=== PATIENT | female | born 1990 | race Caucasian/White ===

== ENCOUNTER 2018-01-29 00:32 | Emergency (ER) | payer OTHER, MEDICAID ==
[2018-01-29 00:51] VITALS: BP 115/65
[2018-01-29 01:24] LABS: APPEARANCE,URINE SLIGHTLY-CLOUDY; BILIRUBIN,URINE NEGATIVE (NEGATIVE); COLOR,URINE YELLOW; GLUCOSE, URINE NEGATIVE (NEGATIVE); KETONES,URINE NEGATIVE (NEGATIVE); LEUKOCYTE ESTERASE,URINE NEGATIVE (NEGATIVE); NITRITE,URINE NEGATIVE (NEGATIVE); PROTEIN,URINE NEGATIVE (NEGATIVE); URINE SPECIFIC GRAVITY 1.013; UROBILINOGEN,URINE NEGATIVE mg/dL (<2.0)
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
== END 2018-01-29 03:44 | disposition home or self-care (01) ==
LOC: ER 00:32
DX: Z04.1 Encounter for examination and observation following transport accident (principal); O26.92 Pregnancy related conditions, unspecified, second trimester; Z3A.26 26 weeks gestation of pregnancy; V89.2XXA Person injured in unspecified motor-vehicle accident, traffic, initial encounter; Z88.3 Allergy status to other anti-infective agents
CPT/HCPCS: 76815; 81001; 81025; 99285

== ENCOUNTER 2018-01-29 03:46 | Outpatient (CLI) | payer MEDICAID ==
--- NOTE | 2018-01-29 04:51 | RADIOLOGY REPORT (SQ) ---
EXAM DESCRIPTION: U/S OB LIMITED CLINICAL HISTORY: 27 years Female, eval for abruption, placenta location, EGA COMPARISON: None. TECHNIQUE: Limited second trimester obstetrical ultrasound FINDINGS: measurements: BPD: 6.72 compatible with an estimated gestational age of 27 weeks, 0 days. HC: 24.81 cm compatible with an estimated gestational age of 27 weeks, 0 days. AC: 23.14 cm compatible with an estimated gestational age of 27 weeks, 3 days. FL: 4.93 compatible with an estimated gestational age of 26 weeks, 4 days. Estimated weight: 1028 g. Percentile 61% Estimated age of 27 weeks, 0 days. Estimated date of delivery by ultrasound 04/30/2018. LMP: 07/30/2017 heart rate 160 beats for minute. Placenta: Anterior no evidence of abruption. Presentation: Breech Amniotic fluid volume not obtained however qualitatively normal appearing amniotic fluid volume. IMPRESSION: 1. Single live intrauterine with estimated gestational age of 27 weeks, 0 days. heart rate of 160 beats for minute. 2. The placenta is anterior with no definite evidence of abruption at this time.
== END 2018-01-29 05:50 | disposition home or self-care (01) ==
LOC: LC 03:46
PROVIDERS: ATTEND Obstetrics & Gynecology
PROC: 4A1HXCZ Monitoring of Products of Conception, Cardiac Rate, External Approach (ICD-10-PCS; principal; 2018-01-29)
DX: O47.02 False labor before 37 completed weeks of gestation, second trimester (principal); Z3A.26 26 weeks gestation of pregnancy
CPT/HCPCS: 76815

== ENCOUNTER 2018-03-29 01:43 | Outpatient (CLI) | payer MEDICAID ==
[2018-03-29 02:27] LABS: APPEARANCE,URINE SLIGHTLY-CLOUDY; BILIRUBIN,URINE NEGATIVE (NEGATIVE); COLOR,URINE YELLOW; GLUCOSE, URINE NEGATIVE (NEGATIVE); KETONES,URINE NEGATIVE (NEGATIVE); LEUKOCYTE ESTERASE,URINE NEGATIVE (NEGATIVE); NITRITE,URINE NEGATIVE (NEGATIVE); PROTEIN,URINE NEGATIVE (NEGATIVE); UROBILINOGEN,URINE NEGATIVE mg/dL (<2.0)
[2018-03-29] MEDS ORDERED: RINGERS SOLUTION,LACTATED 1,000 ML IV PRN (02:37)
[2018-03-29 03:05] LABS: URINE AMPHETAMINES SCREEN NEGATIVE; URINE BARBITURATES SCREEN NEGATIVE; URINE BENZODIAZEPINES SCREEN NEGATIVE; URINE COCAINE SCREEN NEGATIVE; URINE MARIJUANA (THC) SCREEN NEGATIVE; URINE METHADONE SCREEN NEGATIVE; URINE PHENCYCLIDINE SCREEN NEGATIVE
--- NOTE | 2018-03-29 03:44 | RADIOLOGY REPORT (SQ) ---
EXAM DESCRIPTION: US LIMITED COMPLETED DATE/TME: 03/29/2018 00:00 CLINICAL HISTORY: 27 years, Female, placental status COMPARISON: 01/29/2018 TECHNIQUE: Limited third trimester surgical ultrasound. FINDINGS: heart rate 157 beats. Presentation: Vertex CROW: 21 cm. Placenta: Anterior. No definite evidence of placental hemorrhage on these images. IMPRESSION: 1. No definite evidence of placental hemorrhage on these images. 2. Polyhydramnios. Continued obstetrical follow-up recommended. 2010 [employer]- All Rights Reserved
--- NOTE | 2018-03-29 05:30 | Non Stress Test Report ---
Non Stress Test Datetime Report Generated by CPN: 03/29/2018 05:30 DEMOGRAPHIC EGA NST: 34.4 INDICATION Indication for Study: Ordered by Provider MONITORING Monitor Explained: Monitor Explained; Test Explained; Patient Verbalized Understanding Time on Monitor: 03/29/2018 02:53 Time off Monitor: 03/29/2018 04:21 NST Duration: 88 NST INTERVENTIONS NST Interventions: PO Hydration; IV Fluids; Reposition Patient Physician Notified NST: Dr. Fagan BABY A: [id number] BABY A Movement : Present Contraction Frequency : 2-7 FHR Baseline : 150 Accelerations : 15X15 Decelerations : None Variability : Moderate 6-25bpm NST Review: Meets Criteria for Reactive NST NST Review and Verified By : abelino SEXTON Results: Reactive NST REPORT Report Trigger: Send Report
== END 2018-03-29 05:11 | disposition home or self-care (01) ==
LOC: LC 01:43
PROVIDERS: ATTEND Obstetrics & Gynecology Gynecology
PROC: 4A1HXCZ Monitoring of Products of Conception, Cardiac Rate, External Approach (ICD-10-PCS; principal; 2018-03-29)
DX: O40.3XX0 Polyhydramnios, third trimester, not applicable or unspecified (principal); Z3A.34 34 weeks gestation of pregnancy
CPT/HCPCS: 59025; 76815; 80307; 81001

== ENCOUNTER 2018-03-29 05:21 | Emergency (ER) | payer MEDICAID ==
[2018-03-29 05:54] LABS: ABSOLUTE EOSINOPHILS # (AUTO) 0.2 10^3/uL (0.0-0.6); ABSOLUTE LYMPHOCYTES (AUTO) 2.8 10^3/uL (0.5-4.7); ABSOLUTE MONOCYTES (AUTO) 0.6 10^3/uL (0.1-1.4); ABSOLUTE NEUT (AUTO) 7.7 10^3/uL (1.7-8.2); BASOPHILS % (AUTO) 0.3 % (0-2); EOSINOPHILS % (AUTO) 1.4 % (0-6); HEMATOCRIT 32.8 % (36.0-47.0); HEMOGLOBIN 10.9 g/dL (12.0-15.5); LYMPHOCYTES % (AUTO) 25.1 % (13-45); MEAN CORPUSCULAR HGB CONC 33.3 g/dL (32.0-36.0); MEAN CORPUSCULAR VOLUME 78 fl (80-97); MONOCYTES % (AUTO) 5.1 % (3-13); PLATELET COUNT 317 10^3/uL (150-450); RED BLOOD COUNT 4.21 10^6/uL (3.72-5.28); RED CELL DISTRIBUTION WIDTH 16.5 % (11.5-14.0); SEGMENTED NEUTROPHILS % (AUTO) 68.1 % (42-78); TOTAL CELLS COUNTED % (AUTO) 100 %; WHITE BLOOD COUNT 11.3 10^3/uL (4.0-10.5)
--- NOTE | 2018-03-29 05:57 | ER Document Report ---
ED Medical Screen (RME) - General Chief Complaint: Abdominal Pain Stated Complaint: ABDOMINAL PAIN Time Seen by Provider: 03/29/18 05:37 Mode of Arrival: Ambulatory Information source: Patient Notes: 27-year-old female presents with right upper and lower quadrant pain. Patient is 34 weeks and was just cleared by labor and delivery. Patient reports that this pain has been ongoing for the last 2-3 days. Patient reports nausea but denies vomiting or diarrhea patient denies fever. Patient reports pain is 3/5 and is intermittent. Patient denies any history of abdominal surgeries. Patient reports normal bowel movements last bowel movement yesterday. I have greeted and performed a rapid initial assessment of this patient. A comprehensive ED assessment and evaluation of the patient, analysis of test results and completion of the medical decision making process will be conducted by additional ED providers. TRAVEL OUTSIDE OF THE [place] IN LAST 30 DAYS: No - Related Data Allergies/Adverse Reactions: erythromycin base Allergy (Verified 03/29/18 05:24) fluticasone Allergy (Verified 03/29/18 05:24) mometasone furoate Allergy (Verified 03/29/18 05:24) pollen extracts Allergy (Verified 03/29/18 05:24) ragweed pollen Allergy (Verified 03/29/18 05:24) Past Medical History - General Information source: Patient - Social History Cigarette use (# per day): No Frequency of alcohol use: None Drug Abuse: None Lives with: Family Pulmonary Medical History: Reports: Hx Asthma Renal/ Medical History: Denies: Hx Peritoneal Dialysis Past Surgical History: Reports: Hx Orthopedic Surgery - R ACL reconstruction Review of Systems - Review of Systems Constitutional: No symptoms reported EENT: No symptoms reported Cardiovascular: No symptoms reported Respiratory: No symptoms reported Gastrointestinal: See HPI Genitourinary: No symptoms reported Female Genitourinary: No symptoms reported Musculoskeletal: No symptoms reported Skin: No symptoms reported Hematologic/Lymphatic: No symptoms reported Neurological/Psychological: No symptoms reported Physical Exam - Vital signs Vitals: Temp Pulse Resp BP Pulse Ox 98 F 91 16 138/79 H 97 03/29/18 05:27 03/29/18 05:27 03/29/18 05:27 03/29/18 05:27 03/29/18 05:27 - Notes Notes: PHYSICAL EXAMINATION: GENERAL: Well-appearing, well-nourished and in no acute distress. ABDOMEN: Soft, large round gravid abdomen. TTP to RLQ/RUQ. No guarding, no rebound. No masses appreciated. Female : deferred Course - Vital Signs Vital signs: Temp Pulse Resp BP Pulse Ox 98 F 91 16 138/79 H 97 03/29/18 05:27 03/29/18 05:27 03/29/18 05:27 03/29/18 05:27 03/29/18 05:27 - Laboratory Result Diagrams: 03/29/18 05:40 03/29/18 05:40 Doctor's Discharge - Discharge Referrals: KENDALL ROJAS MD [Primary Care Provider] - Follow up as needed
[2018-03-29 06:20] LABS: ALANINE AMINOTRANSFERASE 23 U/L (9-52); ALBUMIN 3.1 g/dL (3.5-5.0); ALKALINE PHOSPHATASE 103 U/L (38-126); ANION GAP 10 (5-19); ASPARTATE AMINO TRANSFERASE 14 U/L (14-36); BILIRUBIN,DIRECT 0.3 mg/dL (0.0-0.4); BILIRUBIN,TOTAL 0.4 mg/dL (0.2-1.3); BLOOD UREA NITROGEN 5 mg/dL (7-20); CARBON DIOXIDE 23 mmol/L (22-30); CHLORIDE 106 mmol/L (98-107); GLUCOSE 80 mg/dL (75-110); LIPASE 136.2 U/L (23-300); POTASSIUM 4.3 mmol/L (3.6-5.0); SODIUM 139.1 mmol/L (137-145); TOTAL PROTEIN 6.2 g/dL (6.3-8.2)
--- NOTE | 2018-03-29 06:40 | RADIOLOGY REPORT (SQ) ---
EXAM DESCRIPTION: US ABDOMEN LIMITED COMPLETED DATE/TME: 03/29/2018 05:41 CLINICAL HISTORY: RUQ pain COMPARISON: None. TECHNIQUE: Real-time sonographic images of the right upper abdomen were obtained using a curved multihertz transducer. FINDINGS: Pancreas: Negative is not well-visualized due to overlying structures. Vascular: The visualized portions of the aorta and IVC are unremarkable. Liver: The liver has normal contour and echogenicity. Hepatopedal flow in the portal vein confirmed with color and spectral Doppler imaging. The common bile duct measures 0.3 cm. Gallbladder: Mobile echogenic structures compatible with gallstones. No wall thickening or pericholecystic fluid. Negative reported sonographic Mills sign. Right Kidney: The right kidney measures 10.2 cm in length. No hydronephrosis, solid renal mass, or shadowing calculi. IMPRESSION: 1. Cholelithiasis without other sonographic evidence of acute cholecystitis.
--- NOTE | 2018-03-29 07:20 | ER Document Report ---
ED General <RAMIN EMERSON - Last Filed: 03/29/18 07:20> - General Mode of Arrival: Ambulatory Information source: Patient TRAVEL OUTSIDE OF THE [place] IN LAST 30 DAYS: No - HPI Onset/Duration: Constant <VIVEK PABLO - Last Filed: 03/29/18 07:35> - General Chief Complaint: Abdominal Pain Stated Complaint: ABDOMINAL PAIN Time Seen by Provider: 03/29/18 05:37 Notes: Patient is a 27 year old female currently 34 weeks (cleared by labor and delivery) with asthma presents to the emergency department complaining of right mid to lower abdominal pain onset 2-3 days ago with an associated symptom of nausea. Patient states the pain is constant and exacerbated when she is standing up. Patient denies any vomiting or diarrhea. (VIVEK PABLO) - Related Data Allergies/Adverse Reactions: erythromycin base Allergy (Verified 03/29/18 05:24) fluticasone Allergy (Verified 03/29/18 05:24) mometasone furoate Allergy (Verified 03/29/18 05:24) pollen extracts Allergy (Verified 03/29/18 05:24) ragweed pollen Allergy (Verified 03/29/18 05:24) Past Medical History - General Information source: Patient - Social History Smoking Status: Former Smoker - quit 2011 Cigarette use (# per day): No Chew tobacco use (# tins/day): No Frequency of alcohol use: None Drug Abuse: None Lives with: Family Family History: Reviewed & Not Pertinent Patient has suicidal ideation: No Patient has homicidal ideation: No Pulmonary Medical History: Reports: Hx Asthma Past Surgical History: Reports: Hx Orthopedic Surgery - R ACL reconstruction <VIVEK PABLO - Last Filed: 03/29/18 07:35> Review of Systems - Review of Systems Constitutional: No symptoms reported EENT: No symptoms reported Cardiovascular: No symptoms reported Respiratory: No symptoms reported Gastrointestinal: See HPI, Abdominal pain, Nausea Genitourinary: No symptoms reported Female Genitourinary: No symptoms reported Musculoskeletal: No symptoms reported Skin: No symptoms reported Hematologic/Lymphatic: No symptoms reported Neurological/Psychological: No symptoms reported -: Yes All other systems reviewed and negative <VIVEK PABLO - Last Filed: 03/29/18 07:35> Physical Exam - General General appearance: Appears well, Alert In distress: None - HEENT Head: Normocephalic, Atraumatic Eyes: Normal Conjunctiva: Normal Extraocular movements intact: Yes Neck: Normal - Respiratory Respiratory status: No respiratory distress Chest status: Nontender Breath sounds: Normal Chest palpation: Normal - Cardiovascular Rhythm: Regular Heart sounds: Normal auscultation Murmur: No Friction rub: No Gallop: None auscultated - Abdominal Inspection: Gravid female, Morbidly Obese Distension: No distension Bowel sounds: Normal Tenderness: Tender - Tender to palpation to the right mid to lower abdomen consistent with abdominal round ligament insertion. Organomegaly: No organomegaly - Back Back: Normal - Extremities General upper extremity: Normal ROM General lower extremity: Normal ROM - Neurological Neuro grossly intact: Yes Cognition: Normal Orientation: AAOx4 Lamoni Coma Scale Eye Opening: Spontaneous Lamoni Coma Scale Verbal: Oriented Lamoni Coma Scale Motor: Obeys Commands Lamoni Coma Scale Total: 15 Speech: Normal - Psychological Associated symptoms: Normal affect, Normal mood - Skin Skin Temperature: Warm Skin Moisture: Dry Skin Color: Normal <VIVEK PABLO - Last Filed: 03/29/18 07:35> - Vital signs Vitals: Temp Pulse Resp BP Pulse Ox 98 F 91 16 138/79 H 97 03/29/18 05:27 03/29/18 05:27 03/29/18 05:27 03/29/18 05:27 03/29/18 05:27 Course - Laboratory Result Diagrams: 03/29/18 05:40 03/29/18 05:40 <RAMIN EMERSON - Last Filed: 03/29/18 07:20> - Laboratory Result Diagrams: 03/29/18 05:40 03/29/18 05:40 <VIVEK PABLO - Last Filed: 03/29/18 07:35> - Vital Signs Vital signs: Temp Pulse Resp BP Pulse Ox 98 F 91 16 138/79 H 97 03/29/18 05:27 03/29/18 05:27 03/29/18 05:27 03/29/18 05:27 03/29/18 05:27 - Laboratory Laboratory results interpreted by me: 03/29/18 03/29/18 05:40 05:40 WBC 11.3 H Hgb 10.9 L Hct 32.8 L MCV 78 L MCH 26.0 L RDW 16.5 H BUN 5 L Total Protein 6.2 L Albumin 3.1 L Discharge <RAMIN EMERSON - Last Filed: 03/29/18 07:20> <VIVEK PABLO - Last Filed: 03/29/18 07:35> - Discharge Clinical Impression: Pain of round ligament affecting , antepartum Cholelithiasis Qualifiers: Cholelithiasis location: gallbladder Cholecystitis presence: without cholecystitis Biliary obstruction: without biliary obstruction Qualified Code(s) : K80.20 - Calculus of gallbladder without cholecystitis without obstruction Condition: Stable Disposition: HOME, SELF-CARE Additional Instructions: Pelvic Pain and Round Ligament Pain: Lower abdominal pain during can have many causes. We look for serious causes such as appendicitis, tubal , miscarriage, placental separation, or urinary tract infection. Less serious causes of pain include corpus luteum cyst (ovarian cyst of ) or stretching of the pelvic tissues by the enlarging uterus. Sometimes the pain comes from the bowels. If no specific cause for the pain is found, we attribute the pain to stretching of the uterine ligaments. This is called "round ligament strain." It is not dangerous. Just rest until the pain goes away. Call us or come back for reexamination if any problems occur, such as: (1) Pain that becomes more severe, steady, or becomes concentrated in one specific area. Also, pain that is more severe with movement or coughing. (2) Vomiting that persists or becomes more frequent. (3) Blood in the vomitus, urine, or bowel movements. Blood in the stool may have a tarry or black appearance. (4) Shaking chills or fever greater than 100 degrees. (5) The abdomen becomes more distended or swollen. (6) Bowel movements cease. (7) Vaginal bleeding. Gallbladder Disease: Your evaluation shows evidence of gallbladder disease. The gallbladder is a pouch under the liver which stores bile. Stones, infection, or irritation of the gallbladder cause attacks of pain. Certain foods -- fats in particular -- may provoke attacks. The usual treatment for gallbladder disease is surgical removal of the gallbladder -- called a cholecystectomy. You will be referred to a physician qualified to advise you on the best treatment for your problem. Call the doctor or return at once if you develop severe pain, repeated vomiting, fever, or jaundice (a yellow color in the skin and whites of the eyes) . Stay on a low-fat diet. Follow-up with your [facility] doctor this week and let them know about the gallbladder ultrasound showing multiple small stones. Follow-up with [facility] to discuss having her gallbladder removed after you deliver. RETURN TO THE EMERGENCY ROOM IF ANY NEW OR WORSENING SYMPTOMS. Referrals: [facility] [Provider Group] - Follow up as needed KENDALL ROJAS MD [Primary Care Provider] - Follow up as needed Scribe Attestation: 03/29/18 07:24 I personally performed the services described in the documentation, reviewed and edited the documentation which was dictated to the scribe in my presence, and it accurately records my words and actions. (RAMIN EMERSON) Scribe Documentation - Scribe Written by Mary Jo:: Mary Jo Chavez, 03/29/2018 07:35 acting as scribe for :: Rosa M <VIVEK PABLO - Last Filed: 03/29/18 07:35>
[2018-03-29 07:42] VITALS: BP 124/74
== END 2018-03-29 07:42 | disposition home or self-care (01) ==
LOC: ER 05:21
DX: O26.893 Other specified pregnancy related conditions, third trimester (principal); R10.2 Pelvic and perineal pain; R11.0 Nausea; O99.613 Diseases of the digestive system complicating pregnancy, third trimester; K80.20 Calculus of gallbladder without cholecystitis without obstruction; O99.513 Diseases of the respiratory system complicating pregnancy, third trimester; J45.909 Unspecified asthma, uncomplicated; Z3A.34 34 weeks gestation of pregnancy; Z88.1 Allergy status to other antibiotic agents; Z91.048 Other nonmedicinal substance allergy status; Z87.891 Personal history of nicotine dependence
CPT/HCPCS: 36415; 76705; 80053; 83690; 85025; 99284

== ENCOUNTER 2018-04-13 14:57 | Outpatient (CLI) | payer MEDICAID ==
--- NOTE | 2018-04-13 16:21 | Non Stress Test Report ---
Non Stress Test Datetime Report Generated by CPN: 04/13/2018 16:21 DEMOGRAPHIC EGA NST: 36.5 INDICATION Indication for Study: Polyhydramnios VITAL SIGNS RESP - NST: 18 NBPSYS NST: 113 NBPDIA NST: 59 MONITORING Monitor Explained: Monitor Explained; Test Explained; Patient Verbalized Understanding Time on Monitor: 04/13/2018 15:22 Time off Monitor: 04/13/2018 16:07 NST Duration: 45 NST INTERVENTIONS NST Interventions: PO Hydration Physician Notified NST: Behzad viewed strip BABY A: [id number] BABY A Movement : Present Contraction Frequency : none FHR Baseline : 150 Accelerations : 15X15 Decelerations : None Variability : Moderate 6-25bpm NST Review: Meets Criteria for Reactive NST NST Review and Verified By : Jimbo Anderson RN NST Results: Reactive NST REPORT Report Trigger: Send Report
[2018-04-13 17:15] LABS: APPEARANCE,URINE CLOUDY; BILIRUBIN,URINE NEGATIVE (NEGATIVE); COLOR,URINE AMBER; GLUCOSE, URINE NEGATIVE (NEGATIVE); KETONES,URINE NEGATIVE (NEGATIVE); LEUKOCYTE ESTERASE,URINE SMALL (NEGATIVE); NITRITE,URINE NEGATIVE (NEGATIVE); PROTEIN,URINE 30 mg/dL (NEGATIVE); URINE SPECIFIC GRAVITY 1.016; UROBILINOGEN,URINE NEGATIVE mg/dL (<2.0)
[2018-04-13 17:55] LABS: URINE AMPHETAMINES SCREEN NEGATIVE; URINE BARBITURATES SCREEN NEGATIVE; URINE BENZODIAZEPINES SCREEN NEGATIVE; URINE COCAINE SCREEN NEGATIVE; URINE MARIJUANA (THC) SCREEN NEGATIVE; URINE METHADONE SCREEN NEGATIVE; URINE PHENCYCLIDINE SCREEN NEGATIVE
== END 2018-04-13 16:17 | disposition home or self-care (01) ==
LOC: LC 14:57
PROVIDERS: ATTEND Obstetrics & Gynecology
PROC: 4A1HXCZ Monitoring of Products of Conception, Cardiac Rate, External Approach (ICD-10-PCS; principal; 2018-04-13)
DX: O40.3XX0 Polyhydramnios, third trimester, not applicable or unspecified (principal); Z3A.36 36 weeks gestation of pregnancy
CPT/HCPCS: 59025; 80307; 81005

== ENCOUNTER 2018-04-14 18:59 | Inpatient (IN) | payer MEDICAID ==
[2018-04-14 19:47] LABS: ABSOLUTE EOSINOPHILS # (AUTO) 0.1 10^3/uL (0.0-0.6); ABSOLUTE LYMPHOCYTES (AUTO) 2.3 10^3/uL (0.5-4.7); ABSOLUTE MONOCYTES (AUTO) 0.5 10^3/uL (0.1-1.4); ABSOLUTE NEUT (AUTO) 6.1 10^3/uL (1.7-8.2); BASOPHILS % (AUTO) 0.4 % (0-2); EOSINOPHILS % (AUTO) 1.6 % (0-6); HEMATOCRIT 32.2 % (36.0-47.0); HEMOGLOBIN 10.9 g/dL (12.0-15.5); LYMPHOCYTES % (AUTO) 25.5 % (13-45); MEAN CORPUSCULAR HEMOGLOBIN 26.3 pg (27.0-33.4); MEAN CORPUSCULAR HGB CONC 33.9 g/dL (32.0-36.0); MEAN CORPUSCULAR VOLUME 78 fl (80-97); MONOCYTES % (AUTO) 5.6 % (3-13); PLATELET COUNT 290 10^3/uL (150-450); RED BLOOD COUNT 4.16 10^6/uL (3.72-5.28); RED CELL DISTRIBUTION WIDTH 17.2 % (11.5-14.0); SEGMENTED NEUTROPHILS % (AUTO) 66.9 % (42-78); TOTAL CELLS COUNTED % (AUTO) 100 %; WHITE BLOOD COUNT 9.1 10^3/uL (4.0-10.5)
[2018-04-14 19:56] LABS: APPEARANCE,URINE SLIGHTLY-CLOUDY; BILIRUBIN,URINE NEGATIVE (NEGATIVE); COLOR,URINE YELLOW; GLUCOSE, URINE NEGATIVE (NEGATIVE); KETONES,URINE NEGATIVE (NEGATIVE); LEUKOCYTE ESTERASE,URINE TRACE (NEGATIVE); NITRITE,URINE NEGATIVE (NEGATIVE); PROTEIN,URINE NEGATIVE (NEGATIVE); URINE SPECIFIC GRAVITY 1.013; UROBILINOGEN,URINE NEGATIVE mg/dL (<2.0)
[2018-04-14 20:13] LABS: URINE AMPHETAMINES SCREEN NEGATIVE; URINE BARBITURATES SCREEN NEGATIVE; URINE BENZODIAZEPINES SCREEN NEGATIVE; URINE COCAINE SCREEN NEGATIVE; URINE MARIJUANA (THC) SCREEN NEGATIVE; URINE METHADONE SCREEN NEGATIVE; URINE PHENCYCLIDINE SCREEN NEGATIVE
--- NOTE | 2018-04-14 20:55 | RADIOLOGY REPORT (SQ) ---
EXAM DESCRIPTION: U/S OB LIMITED COMPLETED DATE/TIME: 04/14/2018 8:42 pm REASON FOR STUDY: position patient being induced for labor COMPARISON: 03/29/2018 TECHNIQUE: Limited transabdominal grayscale ultrasound for evaluation of specific requested obstetri mahad parameters. LIMITATIONS: None. FINDINGS: CERVICAL LENGTH: Not measured. Closed. CROW: Polyhydramnios by history. FHR: Not recorded. Beats per minute. PRESENTATION: Breech OTHER: Gestation of 36 weeks 6 days. IMPRESSION: LIMITED OBSTETRICAL ULTRASOUND WITH MEASURED PARAMETERS DELINEATED ABOVE. Trimester of : Third trimester - 28 weeks to delivery. TECHNICAL DOCUMENTATION: JOB ID: [id number] [employer]- All Rights Reserved Reading location - IP/workstation name: [email or web address]
--- NOTE | 2018-04-14 22:55 | Non Stress Test Report ---
Non Stress Test Datetime Report Generated by CPN: 04/14/2018 22:55 DEMOGRAPHIC Test Number: 4 EGA NST: 36.6 INDICATION Indication for Study: Ordered by Provider URINE RESULTS Urine Protein, NST: Negative Urine Ketones - NST: Negative Urine Glucose - NST: Negative Urine Blood - NST: Negative MONITORING Monitor Explained: Monitor Explained; Test Explained; Patient Verbalized Understanding Time on Monitor: 04/14/2018 21:45 Time off Monitor: 04/14/2018 22:11 NST Duration: 26 NST INTERVENTIONS NST Interventions: PO Hydration Physician Notified NST: Romeo BABY A: [id number] BABY A Movement : Present Contraction Frequency : irritability FHR Baseline : 150 Accelerations : 15X15 Decelerations : None Variability : Moderate 6-25bpm NST Review: Meets Criteria for Reactive NST NST Review and Verified By : AFUA Blancas NST Results: Reactive NST REPORT Report Trigger: Send Report
--- NOTE | 2018-04-14 23:07 | Admission Physical ---
Datetime Report Generated by CPN: 04/14/2018 23:07 CURRENT ADMISSION Chief Complaint: Other Chief Complaint Other: polyhydramnios Indication for Induction: Polyhydramnios Admit Impression : Term, Intrauterine Admit Impression- Other: poly and breech Admit Plan: Observation/Evaluation Admit Plan- Other: unable to induce. consider version and c section in am. ALLERGIES Medication Allergies: Yes Medication Allergies: mometasone furoate (04/13/2018); erythromycin base (04/13/2018); pollen extracts (04/13/2018); fluticasone (04/13/2018); ragweed pollen (04/13/2018) Latex: No Latex Allergies OBSTETRICAL HISTORY EDC: 05/06/2018 00:00 : 2 Para: 1 Term: 1 : 0 SAB: 0 IAB: 0 Ectopic: 0 Livin Cesareans: 0 VBACs: 0 Multiple Births: 0 Gestational Diabetes: No Rh Sensitization: No Incompetent Cervix: No PETER: No Infertility: No ART Treatment: No Uterine Anomaly: No IUGR: No Hx Previous C/S: No Macrosomia: No Hx Loss/Stillborn: No PIH: No Hx : No Placenta Previa/Abruption: No Depression/PP Depression: Yes PTL/PROM: No Post Hemorrhage: No Current Procedures: Ultrasound; NST Obstetrical History Comments: 2011 at 42 weeks G2- current SEE RECORDS Alcohol: No Marijuana : No Cocaine: No Other Illicit Drugs: No Cigarettes: Former Smoker. [id number] Cigarette Frequency: 5 - 10 per day MEDICAL HISTORY Diabetes: No Blood Transfusion: No Pulmonary Disease (Asthma, TB): Yes Breast Disease: No Hypertension: No Oil Lease Operator Surgery: Yes Heart Disease: No Hosp/Surgery: Yes Autoimmune Disorder: No Anesthetic Complications: No Kidney Disease: No Abnormal Pap Smear: No Neuro/Epilepsy: No Psychiatric Disorders: Yes Other Medical Diseases: No Hepatitis/Liver Disease: No Significant Family History: Yes Varicosities/Phlebitis: No Trauma/Violence : No Thyroid Dysfunction: Yes Medical History Comments: ACL reconstruction in right knee INFECTIOUS HISTORY Gonorrhea: No Genital Herpes: No Chlamydia: No Tuberculosis: No Syphilis: No Hepatitis: No HIV/AIDS Exposure: No Rash or Viral Illness: No HPV: No PHYSICAL EXAM General: Normal HEENT: Normal Neurologic: Normal Thyroid: Normal Heart: Normal Lungs: Normal Breast: Deferred Back: Normal Abdomen: Normal Genitourinary Exam: Normal Extremities: Normal DTRs: Normal Pelvic Type: Adequate Vital Signs: Reviewed MEMBRANES Membranes: Intact FETUS A EGA: 36.6 Monitoring: External US FHR- Baseline: 20 Variability: Moderate 6-25bpm Decelerations: None FHR Category: Category I Presentation: Breech PLANS FOR LABOR AND DELIVERY Labor and Delivery: None Pain Management: Natural Feeding Preference: Breast Benefit of Breast Feed Discussed: Yes Circumcision: N/A INFORMED CONSENT Signature: with User ID: [email or web address]
[2018-04-14] MEDS ORDERED: ZOLPIDEM TARTRATE 5 MG TABLET PO SCH (23:45)
[2018-04-14] MEDS ORDERED: ZOLPIDEM TARTRATE 5 MG TABLET ONE (23:51)
[2018-04-15] MEDS ORDERED: DINOPROSTONE 10 MG VAGINAL INSERT.SR ONE (08:31)
[2018-04-15] MEDS ORDERED: CITRIC ACID/SODIUM CITRATE ORAL SOLN 15 ML UDCUP ONE (15:14)
[2018-04-15] MEDS ORDERED: CEFAZOLIN INJ 1 GM VIAL ONE (15:15)
[2018-04-15] MEDS ORDERED: OXYTOCIN 10 UNIT/ML VIAL ONE (15:19)
[2018-04-15] MEDS ORDERED: BUPIVACAINE HCL/DEX-WATER/PF 15 MG/2 ML AMPULE ONE (15:19)
[2018-04-15] MEDS ORDERED: FENTANYL CITRATE INJ/PF 100 MCG/2 ML AMPUL ONE (15:19)
[2018-04-15] MEDS ORDERED: MIDAZOLAM 2 MG/2 ML INJ ONE (15:19)
[2018-04-15] MEDS ORDERED: PHENYLEPHRINE HCL INJ/PF 10 MG/1 ML SDV ONE (15:20)
[2018-04-15] MEDS ORDERED: ACETAMINOPHEN 1,000 MG/100 ML RTUPB IV ONE (15:20)
[2018-04-15] MEDS ORDERED: IBUPROFEN 800 MG TABLET PO SCH (16:45)
[2018-04-15] MEDS ORDERED: SIMETHICONE 80 MG TAB.CHEW PO PRN (16:45)
[2018-04-15] MEDS ORDERED: MORPHINE SULFATE 10 MG/ML INJ IM PRN (16:45)
[2018-04-15] MEDS ORDERED: PROMETHAZINE HCL INJ 25 MG/1 ML VIAL IV PRN (16:45)
[2018-04-15] MEDS ORDERED: MEASLES,MUMPS&RUBELLA VACC/PF 0.5 ML VIAL SUBCUT PRN (16:45)
[2018-04-15] MEDS ORDERED: DIPH/PERTUSS(ACELL)/TETANUS VAC/PF 0.5 ML SYR (>=10YO) IM PRN (16:45)
[2018-04-15] MEDS ORDERED: OXYTOCIN/NORMAL SALINE 20 UNIT/1,000 ML RTUINJ IV PRN (16:45)
--- NOTE | 2018-04-15 16:45 | PDOC DELIVERY SUMMARY ---
Delivery Summary - Maternal Risk Factors: Polyhydramnios Ruptured Membranes: AROM Fluids: Clear, Poly Hydramnios - Delivery Labor: Not In Labor Presentation: Breech - Medications Type of Anesthesia:: Spinal
[2018-04-15] MEDS ORDERED: OXYTOCIN/NORMAL SALINE 20 UNIT/1,000 ML RTUINJ ONE (16:56)
--- NOTE | 2018-04-15 17:15 | OPERATIVE REPORT E ---
Operative Report NAME: CHANDRIKA GREEN : 1990 AGE: 27Y DATE OF SURGERY: 04/15/2018 ROOM: LR200 PREOPERATIVE DIAGNOSES: 1. INTRAUTERINE AT 37 WEEKS. 2. POLYHYDRAMNIOS. 3. BREECH. POSTOPERATIVE DIAGNOSES: 1. INTRAUTERINE AT 37 WEEKS. 2. POLYHYDRAMNIOS. 3. BREECH. OPERATION: PRIMARY SECTION FOR LIE. SURGEON: Jimbo ROJAS M.D. ESTIMATED BLOOD LOSS: Less than 1000 mL. ANESTHESIA: Spinal. TISSUE REMOVED OR ALTERED: Placenta. PROCEDURE: The patient was placed in a supine position, rolled to the right side, prepped and draped in sterile fashion. Pfannenstiel incision was made. The incision was extended through subcutaneous tissue and fascia with sharp dissection. The fascia was sharply divided. The rectus muscles were bluntly and sharply divided. The peritoneum was entered with sharp dissection. The uterus was nicked in the midline and extended bilaterally. The infant was then delivered via breech extraction through the uterine and abdominal incisions. Nose and mouth suctioned with bulb syringe. Cord was clamped. The was passed from the table. Placenta was manually extracted and the uterus was closed in 2 layers with 0 Vicryl running stitch and then a Lembert suture imbricating the first layer. Areas of bleeding were noted and were controlled with [id number] sutures of 0 Vicryl. Hemostasis was noted. There appeared to be some bleeding from the posterior rectus muscle, and this was controlled with [id number] suture of 0 Vicryl. The fascia was then closed with 0 Vicryl and the skin was closed with subcutaneous absorbable sutures. Underlying tissue was reapproximated using interrupted 2-0 plain. The patient's urine remained clear throughout the procedure. She was taken to the recovery room in good condition. DICTATING PHYSICIAN: Jimbo ROJAS M.D. [id number] PHY#: [id number] ID: [id number] JOB#: [id number] ACCT: [id number] cc:Jimbo ROJAS M.D. >
--- NOTE | 2018-04-15 17:46 | Warning Signs in Babies ---
VOD Warning Signs Datetime Report Generated by [facility]: 04/15/2018 17:46 VOD#[id number] -Warning Signs in Babies: Needs to be viewed. (01/29/2018 04:36:Celestino Gonzalez RN)
[2018-04-15] MEDS ORDERED: KETOROLAC TROMETHAMINE INJ/PF 30 MG/1 ML SDV ONE (17:52)
[2018-04-15] MEDS ORDERED: ACETAMINOPHEN 100 ML IV SCH (18:00)
--- NOTE | 2018-04-15 19:01 | Delivery Summary ---
Del Sum A-C Datetime Report Generated by CPN: 04/15/2018 19:00 DELIVERY PERSONNEL DELIVERY PERSONNEL: [id number] Delivery Doctor:: Manav Fagan MD Anesthesiologist:: Hakeem Parnell MD PUBLIC TRANSIT TROLLEY DRIVER:: Zoran Lawjose PUBLIC TRANSIT TROLLEY DRIVER Labor and Delivery Nurse:: Celestino Gonzalez RN Cable Driller:: Denise Salgado RN Inside Barrel Polisher:: Dr. Frenando Duckworth Nursery Nurse:: Manuel Son RN Nursery Nurse:: Smiley Azul RN Rolling Up Machine Operator/YOGA INSTRUCTOR: ST Sophie Rolling Up Machine Operator/YOGA INSTRUCTOR: Olamide Kiran COMB CAPPER MATERNAL INFORMATION Delivery Anesthesia: Spinal Medications After Delivery: Pitocin Drip 20 Units/1000ml NSS Estimated Blood Loss (ml): 700 Maternal Complications: None LABOR SUMMARY EDC: 05/06/2018 00:00 No. Babies in Womb: 1 Attempted: No Labor Anesthesia: None LABOR INFORMATION Reason for Induction: Polyhydramnios Cervical Ripening Agents: Cervidil Oxytocin: N/A Group B Beta Strep: negative Antibiotics # of Doses: 1 Antibiotics Time of Last Dose: 1550 Name of Antibiotic Given: Ancef per PUBLIC TRANSIT TROLLEY DRIVER Steroids Given: None Reason Steroids Not Administered: Not Applicable MEMBRANES Membranes Rupture Method: Artificial Rupture of Membranes: 04/15/2018 16:10 Length of Rupture (hr): 0.02 Amniotic Fluid Color: Clear Amniotic Fluid Amount: Copious Amniotic Fluid Odor: None STAGES OF LABOR Stage 3 hr: 0 Stage 3 min: 1 VAGINAL DELIVERY Episiotomy: None Laceration #1: None Laceration Extension #1: N/A Laceration Repair: Not Applicable Sponge Count Correct: N/A Sharps Count Correct: N/A CSECTION DELIVERY Primary Indication: Failed Induction Other Primary Indication: lie- breech Secondary Indication: Breech Presentation CSection Urgency: Non-Scheduled CSection Incidence: Primary Labor: No Labor Elective: Nonelective CSection Incision: Lower Uterine Transverse BABY A INFORMATION Delivery Date/Time: 04/15/2018 16:11 Method of Delivery: Born in Route : No : N/A Forceps: N/A Vacuum Extraction: N/A Shoulder Dystocia : No PRESENTATION/POSITION BABY A Presentation: Breech Cephalic Presentation: N/A Breech Presentation: [place] PLACENTA INFORMATION BABY A Placenta Delivery Time : 04/15/2018 16:12 Placenta Method of Delivery: Manual Removal Placenta Status: Delivered SCORES BABY A Heart Rate 1 min: >100 bpm Resp Effort 1 min: Slow, Irregular Reflex Irritability 1 min: No Response Muscle Tone 1 min: Some Flexion of Extremities Color 1 min: Blue/Pale Resuscitation Effort 1 min: Tactile Stimulation; Oxygen; PPV/NCPAP SCORE 1 MIN: 4 Heart Rate 5 min: >100 bpm Resp Effort 5 min: Slow, Irregular Reflex Irritability 5 min: No Response Muscle Tone 5 min: Some Flexion of Extremities Color 5 min: Body [place], Extremities Blue Resuscitation Effort 5 min: Oxygen; PPV/NCPAP SCORE 5 MIN: 5 Heart Rate 10 min: >100 bpm Resp Effort 10 min: [place] Reflex Irritability 10 min: [place] Muscle Tone 10 min: Some Flexion of Extremities Color 10 min: Body [place], Extremities Blue Resuscitation Effort 10 min: Oxygen SCORE 10 MIN: 7 INFANT INFORMATION BABY A Gestational Age at Delivery: 37.0 Gestational Status: Early Term- 37- 38.6 Weeks Outcome : Liveborn Infant Condition : Stable Infant Sex: Female IDENTIFICATION BABY A Infant Verification Date/Time: 04/15/2018 16:18 ID Band Number: [id number] Mother's Name Verified: Yes RN Verifying Infant: C. Damian RN Additional Verifying Personnel: Tricia CastellanoOneShift RN WEIGHT/LENGTH BABY A Birthweight (gm): 3545 Infant Weight (lb): 7 Weight (oz): 13 Length (in): 20.80 Infant Length (cm): 52.83 CORD INFORMATION BABY A No. Cord Vessels: 3 Nuchal Cord : N/A Cord Blood Taken: Yes-For Storage (Mom's Blood type +) Suction: Mouth; Nose ASSESSMENT BABY A Complications: None Physical Findings at Delivery: Within Normal Limits Skin to Skin: No Skin to Skin Time (min): 0 Inside Barrel Polisher/ALS Called : Yes Care By: O. Huy, RN Transferred To: NICU BABY B INFORMATION : N/A SIGNATURES Signature: with User ID: [email or web address]
[2018-04-15] MEDS: OXYCODONE-ACETAMINOPHEN 5-325 MG TABLET PO PRN (20:32)
[2018-04-15] MEDS: DOCUSATE SODIUM 100 MG CAPSULE PO SCH (22:14)
[2018-04-15] MEDS: KETOROLAC TROMETHAMINE INJ/PF 30 MG/1 ML SDV IV SCH (22:14)
[2018-04-15] MEDS: ZOLPIDEM TARTRATE 5 MG TABLET PO SCH (23:20)
[2018-04-16] MEDS: OXYCODONE-ACETAMINOPHEN 5-325 MG TABLET PO PRN ×3 (00:35→22:01)
[2018-04-16] MEDS: KETOROLAC TROMETHAMINE INJ/PF 30 MG/1 ML SDV IV SCH ×2 (03:51→08:44)
[2018-04-16 07:28] LABS: HEMATOCRIT 27.3 % (36.0-47.0); HEMOGLOBIN 9.4 g/dL (12.0-15.5); MEAN CORPUSCULAR HEMOGLOBIN 27.2 pg (27.0-33.4); MEAN CORPUSCULAR HGB CONC 34.4 g/dL (32.0-36.0); MEAN CORPUSCULAR VOLUME 79 fl (80-97); PLATELET COUNT 211 10^3/uL (150-450); RED BLOOD COUNT 3.45 10^6/uL (3.72-5.28)
[2018-04-16] MEDS: PRENATAL VITAMIN W DHA CAPSULE PO SCH (08:44)
[2018-04-16] MEDS: DOCUSATE SODIUM 100 MG CAPSULE PO SCH ×2 (08:45→18:00)
[2018-04-16] MEDS ORDERED: OXYCODONE-ACETAMINOPHEN 5-325 MG TABLET ONE (11:49)
[2018-04-16] MEDS ORDERED: OXYCODONE-ACETAMINOPHEN 5-325 MG TABLET PO PRN (12:02)
[2018-04-16] MEDS ORDERED: ALBUTEROL 2 MG/5 ML SYRP 60 ML PO PRN (12:03)
[2018-04-16] MEDS ORDERED: BUDESONIDE/FORMOTEROL 80-4.5 MCG 60 PUFF/6.9 GM MDI IH PRN (12:03)
[2018-04-16] MEDS ORDERED: ALBUTEROL SULFATE HFA (90 MCG/PUFF) 200 PUFF/8.5 GM MDI IH PRN (12:17)
--- NOTE | 2018-04-16 14:40 | PDOC PROGRESS REPORT ---
Subjective-OB Progress Note for:: 04/16/18 Subjective: Admitted at 36+6ega on 04/14 for IOL due to polydyramnios at 38cm then noted to be breech. On 04/15 - noted to be vertex then breech again and patient underwent Primary C/S for Breech presentation due to polyhydramnios. + flatus, no BM, going to NICU to see baby, doing well, Rubella IMM, Breast feeding/pumping, Considering IUD pp for contraception. Physical Exam (OB) Vital Signs: Temp Pulse Resp BP Pulse Ox 98.4 F 86 20 103/59 L 97 04/16/18 12:35 04/16/18 12:35 04/16/18 12:35 04/16/18 12:35 04/16/18 12:35 Intake & Output 04/15/18 04/16/18 04/17/18 06:59 06:59 06:59 Intake Total 90 Output Total 300 Balance 90 -300 Weight 148.4 kg - PIH/Pre-Eclampsia DTR's: 1 + Clonus: Negative Headache: Absent Epigastric Pain: No Visual Changes: No - Dressing Removed: No - silk tape Incision: Dressing Closure Type: pressure dressin in place - Lochia Lochia Amount: Small 10-25 ml Lochia Color: Rubra/Red - Abdomen Description: Soft Hernia Present: No Bowel Sounds: Normoactive Flatus Presence: Present Stool: No Fundal Description: Firm, Midline Fundal Height: u/u - u/2 - HEENT Head: Normocephalic, Atraumatic - Respiratory Respiratory Status: No respiratory distress Chest Status: Nontender Breath sounds: Clear - Cardiovascular Rhythm: Regular Heart Sounds: Normal auscultation, S1 appreciated, S2 appreciated - Abdominal Inspection: Normal Distension: No distension Tenderness: Nontender Organomegaly: No organomegaly - Extremities Lower extremities: Normal inspection, Nontender. negative: Oscar's sign - Neurological Cognition: Normal Orientation: AAOx4, Alert, Oriented to person, Oriented to place, Oriented to time - Psychological Associated symptoms: Normal affect, Normal mood - Skin Skin Temperature: Warm, Hot Objective-Diagnostic Laboratory: 04/16/18 06:54 04/16/18 06:54 WBC 9.0 RBC 3.45 L Hgb 9.4 L Hct 27.3 L MCV 79 L MCH 27.2 MCHC 34.4 RDW 17.0 H Plt Count 211 Assessment and Plan(PN) - Assessment and Plan (1) Polyhydramnios affecting Is this a current diagnosis for this admission?: Yes Plan: admitted for IOL on 04/14 hen 36+6ega due to severe polyhydramnios. Since pt was breech no IOL was done and re-eval in am with vtx then convert again to breech and underwent c/s (2) Unstable lie of fetus, delivered Is this a current diagnosis for this admission?: Yes Plan: see note above (3) Breech Is this a current diagnosis for this admission?: Yes Plan: Breech presentation delivered with Primary C/S (4) Obesity Qualifiers: Obesity type: due to excess calories Obesity classification: adult class 3 (BMI >= 40) Is this a current diagnosis for this admission?: Yes Plan: SCD/TEDs and ambulation (5) Delivery by section for breech presentation Is this a current diagnosis for this admission?: Yes Plan: Primary C/S for breech/unstable lie Plan:: Continue routine postop/pp care - Time Spent with Patient Time with patient: Less than 15 minutes Medications reviewed and adjusted accordingly: Yes - Disposition Anticipated Discharge: Home Within: within 48 hours Disposition: Discharge to home in 24 to 48 hours depending on recovery.
[2018-04-16] MEDS: ACETAMINOPHEN 325 MG TABLET PO PRN (16:25)
[2018-04-16] MEDS: IBUPROFEN 800 MG TABLET PO SCH (18:00)
[2018-04-16] MEDS: ZOLPIDEM TARTRATE 5 MG TABLET PO SCH (21:43)
[2018-04-17] MEDS: IBUPROFEN 800 MG TABLET PO SCH ×3 (01:49→17:30)
[2018-04-17] MEDS: ACETAMINOPHEN 325 MG TABLET PO PRN ×2 (07:40→12:26)
--- NOTE | 2018-04-17 08:48 | PDOC PROGRESS REPORT ---
Subjective-OB Progress Note for:: 04/17/18 Subjective: Doing well, no c/o, pain under control, voiding, breast feeding Physical Exam (OB) Vital Signs: Temp Pulse Resp BP Pulse Ox 97.9 F 78 18 117/69 97 04/17/18 07:36 04/17/18 07:36 04/17/18 07:36 04/17/18 07:36 04/17/18 07:36 Intake & Output 04/16/18 04/17/18 04/18/18 06:59 06:59 06:59 Intake Total 90 900 Output Total 300 Balance 90 600 - PIH/Pre-Eclampsia DTR's: 1 + Clonus: Negative Headache: Absent Epigastric Pain: No Visual Changes: No - Dressing Removed: Yes Incision: Open, Well Approximated Closure Type: opsite CDI - Bilateral Tubal Ligation Dressing Removed: Yes Site: Dressing - Lochia Lochia Amount: Scant < 10 ml Lochia Color: Rubra/Red - Abdomen Description: Tender, Soft, Round Hernia Present: No Fundal Description: Firm, Midline Fundal Height: u/u - u/2 Objective-Diagnostic Laboratory: 04/16/18 06:54 Assessment and Plan(PN) - Assessment and Plan (1) Breech Qualifiers: Fetus number: single or unspecified fetus Qualified Code(s): O32.1XX0 - Maternal care for breech presentation, not applicable or unspecified Is this a current diagnosis for this admission?: Yes (2) Delivery by section for breech presentation Is this a current diagnosis for this admission?: Yes (3) Obesity Qualifiers: Obesity type: due to excess calories Obesity classification: adult class 3 (BMI >= 40) Is this a current diagnosis for this admission?: Yes (4) Polyhydramnios affecting Is this a current diagnosis for this admission?: Yes (5) Unstable lie of fetus, delivered Is this a current diagnosis for this admission?: Yes - Time Spent with Patient Time with patient: Less than 15 minutes Medications reviewed and adjusted accordingly: Yes - Disposition Anticipated Discharge: Home Within: within 24 hours
[2018-04-17] MEDS: DOCUSATE SODIUM 100 MG CAPSULE PO SCH ×2 (09:24→17:30)
[2018-04-17] MEDS: PRENATAL VITAMIN W DHA CAPSULE PO SCH (09:24)
[2018-04-18] MEDS: OXYCODONE-ACETAMINOPHEN 5-325 MG TABLET PO PRN (00:16)
[2018-04-18] MEDS: ZOLPIDEM TARTRATE 5 MG TABLET PO SCH (01:52)
[2018-04-18] MEDS: IBUPROFEN 800 MG TABLET PO SCH ×2 (04:39→10:08)
[2018-04-18 08:52] VITALS: BP 125/72
--- NOTE | 2018-04-18 09:38 | PDOC PROGRESS REPORT ---
Subjective-OB Progress Note for:: 04/18/18 Subjective: Doing well, no c/o, in nursery with baby, pain under control Physical Exam (OB) Vital Signs: Temp Pulse Resp BP Pulse Ox 98.2 F 84 18 125/72 100 04/18/18 08:00 04/18/18 08:00 04/18/18 08:00 04/18/18 08:00 04/18/18 08:00 Intake & Output 04/17/18 04/18/18 04/19/18 06:59 06:59 06:59 Intake Total 900 Output Total 300 Balance 600 - PIH/Pre-Eclampsia DTR's: 1 + Clonus: Negative Headache: Absent Epigastric Pain: No Visual Changes: No - Dressing Removed: Yes Incision: Well Approximated Closure Type: Sutures - Bilateral Tubal Ligation Dressing Removed: Yes Site: Dressing - Lochia Lochia Amount: Scant < 10 ml Lochia Color: Rubra/Red - Abdomen Description: Soft, Round Hernia Present: No Fundal Description: Firm, Midline Fundal Height: u/u - u/2 Objective-Diagnostic Laboratory: 04/16/18 06:54 Assessment and Plan(PN) - Assessment and Plan (1) Breech Qualifiers: Fetus number: single or unspecified fetus Qualified Code(s): O32.1XX0 - Maternal care for breech presentation, not applicable or unspecified Is this a current diagnosis for this admission?: Yes (2) Delivery by section for breech presentation Is this a current diagnosis for this admission?: Yes (3) Obesity Qualifiers: Obesity type: due to excess calories Obesity classification: adult class 3 (BMI >= 40) Is this a current diagnosis for this admission?: Yes (4) Polyhydramnios affecting Is this a current diagnosis for this admission?: Yes (5) Unstable lie of fetus, delivered Is this a current diagnosis for this admission?: Yes - Time Spent with Patient Time with patient: Less than 15 minutes - home today Medications reviewed and adjusted accordingly: Yes - Disposition Anticipated Discharge: Home
--- NOTE | 2018-04-18 09:50 | PDOC DISCHARGE SUMMARY ---
Final Diagnosis Discharge Date: 04/18/18 - Final Diagnosis (1) Breech Is this a current diagnosis for this admission?: Yes (2) Delivery by section for breech presentation Is this a current diagnosis for this admission?: Yes (3) Obesity Is this a current diagnosis for this admission?: Yes (4) Polyhydramnios affecting Is this a current diagnosis for this admission?: Yes (5) Unstable lie of fetus, delivered Is this a current diagnosis for this admission?: Yes Discharge Data - Discharge Medication Prescriptions: Oxycodone HCl/Acetaminophen [Percocet 5-325 mg Tablet] 2 tab PO Q4HP PRN #30 tablet PRN Reason: Ibuprofen [Motrin 800 mg Tablet] 800 mg PO Q8A #60 tablet Home Medications: Albuterol Sulfate [Proventil 2 mg/5 mL Syrup 60 mL] 2 puff IH Q4 PRN 03/29/18 Budesonide/Formoterol Fumarate [Symbicort 80-4.5 Mcg Inhaler] 2 puff IH DAILY PRN 03/29/18 Vit/Iron Fum/Folic AC [ Tablet] 1 each PO DAILY 04/06/18 Ibuprofen [Motrin 800 mg Tablet] 800 mg PO Q8A #60 tablet 04/18/18 Oxycodone HCl/Acetaminophen [Percocet 5-325 mg Tablet] 2 tab PO Q4HP PRN #30 tablet 04/18/18 Gestational Age: 37 Reason(s) for Admission: Ceasarean Section-Primary Admission Note: breech, polyhydramnios Procedures: NST, Ultrasound Intrapartum Procedure(s): : Low Cervical, Transverse - [place] Data Baby 1 Female at 1 minute: 4 at 5 minutes: 5 at 10 minutes: 7 Weight: 3.544 kg Home with Mother: No Complications: Yes - respiratory - Diagnosis Test Laboratory: Temp Pulse Resp BP Pulse Ox 98.2 F 84 18 125/72 100 04/18/18 08:00 04/18/18 08:00 04/18/18 08:00 04/18/18 08:00 04/18/18 08:00 04/14/18 04/14/18 04/16/18 19:15 19:35 06:54 RBC 4.16 3.45 L Hgb 10.9 L 9.4 L Hct 32.2 L 27.3 L Urine Opiates Screen NEGATIVE - Discharge information/Instructions Discharge Activity: Activity As Tolerated, Balance Activity w/Rest, No Driving, No Lifting Over 10 Pounds, No Lifting/Push/Pulling, Pelvic Rest, Slowly Increase Activity, No tub bath, Walk Frequently Discharge Diet: As Tolerated, Regular Disposition: HOME, SELF-CARE Follow up with: [facility] in: 1, Weeks
[2018-04-18] MEDS: PRENATAL VITAMIN W DHA CAPSULE PO SCH (10:08)
[2018-04-18] MEDS: DOCUSATE SODIUM 100 MG CAPSULE PO SCH (10:08)
== END 2018-04-18 11:48 | disposition home or self-care (01) | DRG 765 ==
LOC: LR 19:06 → 2S 04-15 18:34
PROVIDERS: ADMIT Obstetrics & Gynecology Gynecology; ATTEND Obstetrics & Gynecology Gynecology
PROC: 10D00Z1 Extraction of Products of Conception, Low, Open Approach (ICD-10-PCS; principal; 2018-04-15)
PROC: 4A1HXCZ Monitoring of Products of Conception, Cardiac Rate, External Approach (ICD-10-PCS; 2018-04-15)
DX: O64.1XX0 Obstructed labor due to breech presentation, not applicable or unspecified (principal); Z68.43 Body mass index [BMI] 50.0-59.9, adult; O40.3XX0 Polyhydramnios, third trimester, not applicable or unspecified; O99.214 Obesity complicating childbirth; E66.9 Obesity, unspecified; Z37.0 Single live birth; Z3A.37 37 weeks gestation of pregnancy; Z87.891 Personal history of nicotine dependence
CPT/HCPCS: 1961; 36415; 76815; 80307; 81005; 85025; 85027; 86592; 86850; 86900; 86901; 88307; 94799; J0131; J0690; J1885; J2250; J2370; J2590; J3010; J3490

== ENCOUNTER 2019-02-26 08:32 | Emergency (ER) | payer MEDICAID ==
[2019-02-26 08:41] VITALS: BP 148/101
--- NOTE | 2019-02-26 09:38 | ER Document Report ---
HPI - HPI Time Seen by Provider: 02/26/19 09:16 Pain Level: 3 Notes: Patient is a 28-year-old female presented to the emergency department after falling in her bathtub. She states that she slipped and fell and struck the back of her head on the wall of the tub. She reports that immediately after she fell she had a nosebleed that lasted approximately 4 minutes. Patient now reports mild headache 2/5. She denies any loss of consciousness, denies any nausea or vomiting. - REPRODUCTIVE LMP: 05/16/18 Reproductive: DENIES: : Past Medical History - General Information source: Patient - Social History Smoking Status: Never Smoker Frequency of alcohol use: None Drug Abuse: None Family History: Reviewed & Not Pertinent Patient has suicidal ideation: No Patient has homicidal ideation: No Pulmonary Medical History: Reports: Hx Asthma Renal/ Medical History: Denies: Hx Peritoneal Dialysis Past Surgical History: Reports: Hx Orthopedic Surgery - R ACL reconstruction - Immunizations Immunizations up to date: Yes Vertical Provider Document - CONSTITUTIONAL Notes: PHYSICAL EXAMINATION: GENERAL: Well-appearing, well-nourished and in no acute distress. HEAD: Atraumatic, normocephalic. EYES: Pupils equal round extraocular movements intact, conjunctiva are normal. ENT: Nares patent NECK: Normal range of motion LUNGS: No respiratory distress Musculoskeletal: Normal range of motion, no vertebral tenderness in the cervical area. No thoracic or lumbar vertebral tenderness, no step-off or deformity. NEUROLOGICAL: Normal speech, normal gait. PSYCH: Normal mood, normal affect. SKIN: Warm, Dry, normal turgor, no rashes or lesions noted. - INFECTION CONTROL TRAVEL OUTSIDE OF THE [place] IN LAST 30 DAYS: No Course - Re-evaluation Re-evalutation: 02/26/19 09:38 We will send for head CT. Patient declining need for pain medication. Patient's physical examination is unremarkable, patient has no focal neurological deficits. 02/26/19 10:[address] is negative. Discussed concussion symptoms with patient, patient verbalizes understanding. - Vital Signs Vital signs: Temp Pulse Resp BP Pulse Ox 98.3 F 87 18 148/101 H 98 02/26/19 08:40 02/26/19 08:40 02/26/19 08:40 02/26/19 08:40 02/26/19 08:40 Discharge - Discharge Clinical Impression: Head injury Qualifiers: Encounter type: initial encounter Qualified Code(s): S09.90XA - Unspecified injury of head, initial encounter Condition: Stable Disposition: HOME, SELF-CARE Additional Instructions: You have likely sustained a contusion (bruise) to your head. If you had a CT scan done, it did not show any evidence of serious injury or bleeding. Symptoms to expect from a concussion include nausea, mild to moderate headache, difficulty concentrating or sleeping, and mild lightheadedness. These symptoms should improve over the next few days to weeks. Return to the emergency department or follow-up with your primary care doctor if your symptoms are not improving over this time. Signs of a more serious head injury include vomiting, severe headache, excessive sleepiness or confusion, and weakness or numbness in your face, arms or legs. Return immediately to the Emergency Department if you experience any of these more concerning symptoms. Rest, avoid strenuous physical or mental activity, and avoid activities that could potentially result in another head injury until all your symptoms from this head injury are completely resolved for at least 2-3 weeks. If you participate in sports, get cleared by your doctor or hardware trainer before returning to play. You may take ibuprofen or acetaminophen over the counter according to label instructions for mild headache or scalp soreness. Forms: Return to Work Referrals: KENDALL ROJAS MD [ACTIVE STAFF] - Follow up as needed
--- NOTE | 2019-02-26 10:10 | RADIOLOGY REPORT (SQ) ---
EXAM DESCRIPTION: CT HEAD WITHOUT COMPLETED DATE/TIME: 02/26/2019 9:57 am REASON FOR STUDY: hit back of head on tub, nose bleed after COMPARISON: None. TECHNIQUE: Axial images acquired through the brain without intravenous contrast. Images reviewed wi th bone, brain and subdural windows. Additional sagittal and coronal reconstructions were generated. Images stored on PACS. All CT scanners at this facility use dose modulation, iterative reconstruction, and/or weight based d osing when appropriate to reduce radiation dose to as low as reasonably achievable (ALARA). [facility]: Dose Right [facility]: CareDose [facility]: Dose Right [facility]: Teradose 4D [facility]: [employer] RADIATION DOSE: CT Rad equipment meets quality standard of care and radiation dose reduction techniq ues were employed. CTDIvol: 53.2 mGy. DLP: 1017 mGy-cm. mGy. LIMITATIONS: None. FINDINGS: VENTRICLES: Normal size and contour. CEREBRUM: No masses. No hemorrhage. No midline shift. No evidence for acute infarction. Normal gra y/white matter differentiation. No areas of low density in the white matter. CEREBELLUM: No masses. No hemorrhage. No alteration of density. No evidence for acute infarction. EXTRAAXIAL SPACES: No fluid collections. No masses. ORBITS AND GLOBE: No intra- or extraconal masses. Normal contour of globe without masses. CALVARIUM: No fracture. PARANASAL SINUSES: No fluid or mucosal thickening. SOFT TISSUES: No mass or hematoma. OTHER: No other significant finding. IMPRESSION: NORMAL BRAIN CT WITHOUT CONTRAST. EVIDENCE OF ACUTE STROKE: NO. COMMENT: Quality ID # [id number]: Final reports with documentation of one or more dose reduction techniques (e.g., Automated exposure control, adjustment of the mA and/or kV according to patient size, use of iterative reconstruction technique) TECHNICAL DOCUMENTATION: JOB ID: [id number] [employer]- All Rights Reserved Reading location - IP/workstation name: [email or web address]
== END 2019-02-26 11:01 | disposition home or self-care (01) ==
LOC: ER 08:32
DX: S09.90XA Unspecified injury of head, initial encounter (principal); R51 Headache; R04.0 Epistaxis; W18.2XXA Fall in (into) shower or empty bathtub, initial encounter; J45.909 Unspecified asthma, uncomplicated
CPT/HCPCS: 70450; 99283

== ENCOUNTER 2019-03-06 11:02 | Emergency (ER) | payer MEDICAID ==
[2019-03-06] MEDS ORDERED: NORMAL SALINE 1000 ML 1,000 ML IV ONE (12:00)
[2019-03-06] MEDS ORDERED: ONDANSETRON HCL INJ/PF 4 MG/2 ML SDV IV ONE (12:00)
--- NOTE | 2019-03-06 12:00 | ER Document Report ---
ED Medical Screen (RME) - General Chief Complaint: Nausea/Vomiting Stated Complaint: VOMITING,DIARRHEA,NAUSEA Time Seen by Provider: 03/06/19 11:57 TRAVEL OUTSIDE OF THE [place] IN LAST 30 DAYS: No - HPI Notes: 03/06/19 11:59 Patient is a 28-year-old female no significant past medical history who presents complaining of nausea, vomiting, diarrhea, intermittent abdominal cramping, occasional lightheadedness/dizziness over the past few days. She still urinating normally. No other vaginal discharge, odor, or bleeding. Denies NIX, fever, neck pain, URI, CP, SOB, or rash. I have treated and performed a rapid initial assessment of this patient. A comprehensive ED assessment and evaluation of the patient, analysis of test results and completion of medical decision making process will be conducted by additional ED providers. PHYSICAL EXAMINATION: GENERAL: Well-appearing, well-nourished and in no acute distress. A&Ox4. Answers questions appropriately. LUNGS: Breath sounds clear to auscultation bilaterally and equal. No wheezes rales or rhonchi. HEART: Regular rate and rhythm without murmurs, rubs, gallops. ABDOMEN: Soft, nondistended abdomen. No guarding, no rebound. Normal bowel sounds present. No CVA tenderness bilaterally. Grossly nontender (cannot elicit thorough abd exam w/o table, however). - Related Data Allergies/Adverse Reactions: erythromycin base Allergy (Verified 03/06/19 11:02) fluticasone Allergy (Verified 03/06/19 11:02) mometasone furoate Allergy (Verified 03/06/19 11:02) pollen extracts Allergy (Verified 03/06/19 11:02) ragweed pollen Allergy (Verified 03/06/19 11:02) Past Medical History - Social History Chew tobacco use (# tins/day): No Frequency of alcohol use: Social Drug Abuse: None Pulmonary Medical History: Reports: Hx Asthma Renal/ Medical History: Denies: Hx Peritoneal Dialysis Past Surgical History: Reports: Hx Section - x 1, Hx Orthopedic Surgery - R ACL reconstruction - Immunizations Immunizations up to date: Yes Physical Exam - Vital signs Vitals: Temp Pulse Resp BP Pulse Ox 98.5 F 106 H 18 148/92 H 97 03/06/19 11:11 03/06/19 11:11 03/06/19 11:11 03/06/19 11:11 03/06/19 11:11 Course - Vital Signs Vital signs: Temp Pulse Resp BP Pulse Ox 98.5 F 106 H 18 148/92 H 97 03/06/19 11:11 03/06/19 11:11 03/06/19 11:11 03/06/19 11:11 03/06/19 11:11
[2019-03-06 12:31] LABS: ABSOLUTE EOSINOPHILS # (AUTO) 0.2 10^3/uL (0.0-0.6); ABSOLUTE LYMPHOCYTES (AUTO) 0.9 10^3/uL (0.5-4.7); ABSOLUTE MONOCYTES (AUTO) 0.5 10^3/uL (0.1-1.4); ABSOLUTE NEUT (AUTO) 12.5 10^3/uL (1.7-8.2); BASOPHILS % (AUTO) 0.3 % (0-2); EOSINOPHILS % (AUTO) 1.6 % (0-6); HEMATOCRIT 39.6 % (36.0-47.0); HEMOGLOBIN 12.8 g/dL (12.0-15.5); LYMPHOCYTES % (AUTO) 6.5 % (13-45); MEAN CORPUSCULAR HEMOGLOBIN 24.7 pg (27.0-33.4); MEAN CORPUSCULAR HGB CONC 32.2 g/dL (32.0-36.0); MEAN CORPUSCULAR VOLUME 77 fl (80-97); MONOCYTES % (AUTO) 3.3 % (3-13); PLATELET COUNT 257 10^3/uL (150-450); RED BLOOD COUNT 5.16 10^6/uL (3.72-5.28); SEGMENTED NEUTROPHILS % (AUTO) 88.3 % (42-78); TOTAL CELLS COUNTED % (AUTO) 100 %; WHITE BLOOD COUNT 14.2 10^3/uL (4.0-10.5)
[2019-03-06 12:39] LABS: APPEARANCE,URINE TURBID; BILIRUBIN,URINE NEGATIVE (NEGATIVE); COLOR,URINE YELLOW; GLUCOSE, URINE NEGATIVE (NEGATIVE); KETONES,URINE NEGATIVE (NEGATIVE); LEUKOCYTE ESTERASE,URINE LARGE (NEGATIVE); NITRITE,URINE NEGATIVE (NEGATIVE); PROTEIN,URINE 100 mg/dL (NEGATIVE); URINE SPECIFIC GRAVITY 1.011; UROBILINOGEN,URINE NEGATIVE mg/dL (<2.0)
[2019-03-06 12:50] LABS: ALANINE AMINOTRANSFERASE 31 U/L (9-52); ALBUMIN 3.9 g/dL (3.5-5.0); ALKALINE PHOSPHATASE 61 U/L (38-126); ANION GAP 12 (5-19); ASPARTATE AMINO TRANSFERASE 20 U/L (14-36); BILIRUBIN,DIRECT 0.2 mg/dL (0.0-0.4); BILIRUBIN,TOTAL 0.7 mg/dL (0.2-1.3); BLOOD UREA NITROGEN 11 mg/dL (7-20); CALCIUM 8.2 mg/dL (8.4-10.2); CARBON DIOXIDE 27 mmol/L (22-30); CHLORIDE 102 mmol/L (98-107); GLUCOSE 97 mg/dL (75-110); LIPASE 36.7 U/L (23-300); POTASSIUM 3.8 mmol/L (3.6-5.0)
[2019-03-06] MEDS ORDERED: CEFTRIAXONE 1 GM/D5W RTU 1 GM/50 ML RTUPB IV ONE (13:20)
[2019-03-06] MEDS ORDERED: IBUPROFEN 800 MG TABLET PO ONE (15:25)
--- NOTE | 2019-03-06 15:56 | ER Document Report ---
ED General - General Chief Complaint: Nausea/Vomiting Stated Complaint: VOMITING,DIARRHEA,NAUSEA Time Seen by Provider: 03/06/19 11:57 Notes: Patient is a 20-year-old female presents to the emergency department for generalized nausea, vomiting, diarrhea for the last 3 days. Patient's denying any fevers but is planing of intermittent generalized headaches and intermittent abdominal pain. Patient's denying any dysuria but is complaining about urinary frequency. Patient's denying any vaginal discharge. Patient states she has vomited "too many times to count" and also had "too many episodes of diarrhea to count as well." Patient's denying any blood in her emesis or fecal matter. Past medical history: Asthma Medications: Albuterol, Zyrtec, Symbicort Allergies: Erythromycin TRAVEL OUTSIDE OF THE [place] IN LAST 30 DAYS: No - Related Data Allergies/Adverse Reactions: erythromycin base Allergy (Verified 03/06/19 11:02) fluticasone Allergy (Verified 03/06/19 11:02) mometasone furoate Allergy (Verified 03/06/19 11:02) pollen extracts Allergy (Verified 03/06/19 11:02) ragweed pollen Allergy (Verified 03/06/19 11:02) Past Medical History - General Information source: Patient - Social History Smoking Status: Current Every Day Smoker Chew tobacco use (# tins/day): No Frequency of alcohol use: Social Drug Abuse: None Family History: Reviewed & Not Pertinent Patient has suicidal ideation: No Patient has homicidal ideation: No Pulmonary Medical History: Reports: Hx Asthma Renal/ Medical History: Denies: Hx Peritoneal Dialysis Past Surgical History: Reports: Hx Section - x 1, Hx Orthopedic Surgery - R ACL reconstruction - Immunizations Immunizations up to date: Yes Review of Systems - Review of Systems Constitutional: denies: Fever EENT: No symptoms reported Cardiovascular: No symptoms reported Respiratory: No symptoms reported Gastrointestinal: See HPI Genitourinary: See HPI Female Genitourinary: See HPI Musculoskeletal: No symptoms reported Skin: No symptoms reported Hematologic/Lymphatic: No symptoms reported Neurological/Psychological: See HPI Physical Exam - Vital signs Vitals: Temp Pulse Resp BP Pulse Ox 98.5 F 106 H 18 148/92 H 97 03/06/19 11:11 03/06/19 11:11 03/06/19 11:11 03/06/19 11:11 03/06/19 11:11 - Notes Notes: GENERAL: Morbidly obese alert, interacts well. No acute distress. HEAD: Normocephalic, atraumatic. EYES: Pupils equal, round, and reactive to light. Extraocular movements intact. ENT: Oral mucosa moist, tongue midline. NECK: Full range of motion. Supple. Trachea midline. LUNGS: Clear to auscultation bilaterally, no wheezes, rales, or rhonchi. No respiratory distress. HEART: Regular rate and rhythm. No murmur ABDOMEN: Soft, non-tender. Non-distended. Bowel sounds present in all 4 q uadrants. No McBurney's point tenderness, no Mills sign noted. EXTREMITIES: Moves all 4 extremities spontaneously. No edema, normal radial and dorsalis pedis pulses bilaterally. No cyanosis. BACK: no cervical, thoracic, lumbar midline tenderness. No saddle anesthesia, normal distal neurovascular exam. No CVA tenderness noted bilaterally NEUROLOGICAL: Alert and oriented x3. Normal speech. cranial nerves II through XII grossly intact PSYCH: Normal affect, normal mood. SKIN: Warm, dry, normal turgor. No rashes or lesions noted. Course - Re-evaluation Re-evalutation: 03/06/19 15:56 Patient's labs are noted to have a leukocytosis, urine shows signs of infection, sent for culture. Patient was treated with initial dose of ceftriaxone here in the emergency department. Nursing staff brings to my attention the patient is a T-max of 100.8 orally at this time. Treated. Discussed continued treatment of fevers at home and use of prescription Keflex for urinary tract infection. Patient has had no further episodes of vomiting in the emergency department. She has been able to p.o. fluids with no difficulty. Upon repeat abdominal examination she continues without any abdominal pain. Patient states her headache is overall better and she no longer feels weak or dizzy. Patient stable for discharge. - Vital Signs Vital signs: Temp Pulse Resp BP Pulse Ox 100.8 F H 109 H 20 126/65 H 99 03/06/19 15:08 03/06/19 15:08 03/06/19 15:08 03/06/19 15:08 03/06/19 15:08 - Laboratory Result Diagrams: 03/06/19 12:19 03/06/19 12:19 Laboratory results interpreted by me: 03/06/19 03/06/19 03/06/19 12:19 12:19 12:19 WBC 14.2 H MCV 77 L MCH 24.7 L RDW 17.0 H Seg Neutrophils % 88.3 H Lymphocytes % 6.5 L Absolute Neutrophils 12.5 H Calcium 8.2 L Urine Protein 100 H Urine Blood MODERATE H Ur Leukocyte Esterase LARGE H Discharge - Discharge Clinical Impression: Nausea vomiting and diarrhea Urinary tract infection Qualifiers: Urinary tract infection type: acute cystitis Hematuria presence: without hematuria Qualified Code(s): N30.00 - Acute cystitis without hematuria Condition: Stable Disposition: HOME, SELF-CARE Instructions: Antinausea Medication ([facility]), Intravenous (IV) Fluids ([facility]), Urinary Tract Infection ([facility]), Cephalexin ([facility]), Vomiting ([facility]) Additional Instructions: As we discussed you have been seen and treated in the emergency department for a urinary tract infection. This is likely the cause of your vomiting and diarrhea. This is also likely the cause of your increase in white blood cells. White blood cells fight infection so they are attempting to fight a urinary tract infection. Please make sure you are taking antibiotics as prescribed and stay well-hydrated. Please follow-up with your primary care provider next 24 to 48 hours. Please return to the emergency room for any other concerns. Prescriptions: Cephalexin Monohydrate [Keflex 500 mg Capsule] 500 mg PO BID 7 Days #14 capsule Ondansetron [Zofran Odt 4 mg Tablet] 2 tab PO Q6 PRN #10 tab.rapdis PRN Reason: For Nausea/Vomiting Forms: Return to Work
[2019-03-06 16:13] VITALS: BP 116/81
== END 2019-03-06 16:10 | disposition home or self-care (01) ==
LOC: ER 11:02
DX: N30.00 Acute cystitis without hematuria (principal); R11.2 Nausea with vomiting, unspecified; R19.7 Diarrhea, unspecified; E66.01 Morbid (severe) obesity due to excess calories; D72.829 Elevated white blood cell count, unspecified; F17.200 Nicotine dependence, unspecified, uncomplicated; Z88.3 Allergy status to other anti-infective agents
CPT/HCPCS: 99284; 96361; 96375; 96365; 36415; 87086; 83690; 85025; 81025; 87088; 80053; 81001; 87186; J3490; J2405; J7030; J0696

== ENCOUNTER → 2020-01-06 | Outpatient (CLI) | payer MEDICAID ==
--- NOTE | 2020-01-06 16:15 | ER RDC ASSESSMENT REPORT ---
Intake - In the Last 14 days Have you traveled outside [place]?: No Have you been in close contact with someone CONFIRMED: No Worked in Healthcare?: No - Symptoms Subjective Fever([place] feverish): Yes Chills: Yes Muscule Aches: No Runny Nose: No Sore Throat: No Cough (New or worsening chronic cough): Yes --How many day(s)?: 3 Shortness of breath: Yes Nausea or Vomiting: No Headache: Yes Abdominal Pain: No Diarrhea(3 or more loose stools in last 24 hours): No - Do you have any of the following Chronic lung disease: Asthma or emphysema or COPD: Yes Chronic Lung Disease Comment: Asthma Cystic Fibrosis: No Diabetes: No High Blood Pressure: No Cardiovascular Disease: No Chronic Kidney Disease: No Chronic Liver Disease: No Chronic blood disorder like Sickle Cell Disease: Yes Chronic Blood Disorder Comment: Sickle cell trait Weak immune system due to disease or medication: Yes Immune System Comment: Currently on prednisone for treatment of a sinus infection Neurologic condition that limits movement: No Developmental delay - Moderate to Severe: No - Objective Temperature: 99.9 F Pulse Rate: 110 Respiratory Rate: 20 Blood Pressure: 156/86 O2 Sat by Pulse Oximetry: 98 General - General Stated Complaint: Patient complains of upper respiratory symptoms for 3 days - Related Data Allergies/Adverse Reactions: erythromycin base Allergy (Verified 03/06/19 11:02) fluticasone Allergy (Verified 03/06/19 11:02) mometasone furoate Allergy (Verified 03/06/19 11:02) pollen extracts Allergy (Verified 03/06/19 11:02) ragweed pollen Allergy (Verified 03/06/19 11:02) Past Medical History - General Information source: Patient - Social History Smoking Status: Current Every Day Smoker Smoking Education Provided: Yes - Information provided on smoking cessation Family History: Reviewed & Not Pertinent Pulmonary Medical History: Reports: Hx Asthma Renal/ Medical History: Denies: Hx Peritoneal Dialysis Past Surgical History: Reports: Hx Section - x 1, Hx Orthopedic Surgery - R ACL reconstruction Physical Exam - General In distress: Mild Notes: PHYSICAL EXAMINATION: GENERAL: Well-appearing and in no acute distress. HEAD: Atraumatic, normocephalic. EYES: sclera anicteric, conjunctiva are normal. ENT: nares patent. Moist mucous membranes. NECK: Normal range of motion, supple without lymphadenopathy LUNGS: CTAB and equal. No wheezes rales or rhonchi. HEART: Regular rate and rhythm without murmurs NEUROLOGICAL: Normal speech. PSYCH: Normal mood, normal affect. SKIN: Warm, Dry, normal turgor. Diagnostic Results Laboratory Results: Patient made aware of negative results for rapid flu and rapid strep, advised results for strep culture and COVID testing are still pending. Patient Education/Counseling Counseling/Education: Patient presents with upper respiratory symptoms worrisome for possible Covid 19. Patient does not have emergency worring symptoms such as difficulty breathing, shortness of breath, chest pain, pressure, confusion or cyanosis. Patient appears suitable for discharge. Patient's vital signs are stable and patient is nontoxic in appearance. Good return precautions have been discussed with patient, patient verbalized understanding and is agreeable with discharge plan of care at this time. Patient provided COVID discharge instructions including: As a person under investigation for Covid 19, the [facility] of Health and Human Services, division of public health advises you to adhere to the following guidance until your test results are reported to you. If your test result is positive, you will receive additional information from your provider and your local health department at that time. Remain at home until you are cleared by the health provider or public health authorities. Keep a log of visitors to your home, notify any visitors to your home of your isolation status. If you plan to move to a new address or leave the county, notify the local health department in your County. Call your doctor or seek care if you have an urgent medical need. Before seeking medical care, call ahead to get instructions from the provider before arriving at the medical office clinic or hospital. Notify them that you are being tested for the virus that causes Covid 19 so that arrangements can be made, as necessary, to prevent transmission to others in the healthcare setting. Next, notify the local health department in your county. If a medical emergency arises and you need to call 911, inform the first responders that you are being tested for the virus that causes Covid 19. Next, notify the local health department in your county. RDC Discharge - Discharge Clinical Impression: COVID 19 Screening URI (upper respiratory infection) Qualifiers: URI type: unspecified URI Qualified Code(s): J06.9 - Acute upper respiratory infection, unspecified Condition: Stable Disposition: Home; Selfcare
[2020-01-06 16:45] VITALS: BP 156/86
[2020-01-06 17:44] LABS: A TYPE INFLUENZA AG NEGATIVE (NEGATIVE); B INFLUENZA AG NEGATIVE (NEGATIVE)
== END ==
LOC: RDC 15:49
PROVIDERS: ATTEND Nurse Practitioner Family
DX: Z20.828 Contact with and (suspected) exposure to other viral communicable diseases (principal)
CPT/HCPCS: 36415; 87070; 87635; 87804; 87880

== ENCOUNTER 2020-07-17 08:53 | Emergency (ER) | payer OTHER, MEDICAID ==
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
[2020-07-17 11:54] VITALS: BP 129/83
== END 2020-07-17 11:53 | disposition home or self-care (01) ==
LOC: ER 08:53
DX: M25.561 Pain in right knee (principal); M54.6 Pain in thoracic spine; V40.6XXA Car passenger injured in collision with pedestrian or animal in traffic accident, initial encounter; J45.909 Unspecified asthma, uncomplicated; Z98.890 Other specified postprocedural states; Z79.1 Long term (current) use of non-steroidal anti-inflammatories (NSAID); Z79.899 Other long term (current) drug therapy
CPT/HCPCS: 72070; 81025; 99284

== ENCOUNTER 2020-08-10 08:23 | Emergency (ER) | payer MEDICAID ==
[2020-08-10 09:50] LABS: ABSOLUTE BASOPHILS # (AUTO) 0.1 10^3/uL (0.0-0.2); ABSOLUTE EOSINOPHILS # (AUTO) 0.5 10^3/uL (0.0-0.6); ABSOLUTE MONOCYTES (AUTO) 0.7 10^3/uL (0.1-1.4); ABSOLUTE NEUT (AUTO) 5.6 10^3/uL (1.7-8.2); BASOPHILS % (AUTO) 0.8 % (0-2); EOSINOPHILS % (AUTO) 4.9 % (0-6); HEMATOCRIT 38.8 % (36.0-47.0); HEMOGLOBIN 13.2 g/dL (12.0-15.5); LYMPHOCYTES % (AUTO) 30.1 % (13-45); MEAN CORPUSCULAR HEMOGLOBIN 26.3 pg (27.0-33.4); MEAN CORPUSCULAR HGB CONC 33.9 g/dL (32.0-36.0); MEAN CORPUSCULAR VOLUME 78 fl (80-97); MONOCYTES % (AUTO) 6.9 % (3-13); PLATELET COUNT 306 10^3/uL (150-450); RED CELL DISTRIBUTION WIDTH 15.7 % (11.5-14.0); SEGMENTED NEUTROPHILS % (AUTO) 57.3 % (42-78); TOTAL CELLS COUNTED % (AUTO) 100 %; WHITE BLOOD COUNT 9.8 10^3/uL (4.0-10.5)
[2020-08-10 09:56] LABS: APPEARANCE,URINE SLIGHTLY-CLOUDY; BILIRUBIN,URINE NEGATIVE (NEGATIVE); COLOR,URINE YELLOW; GLUCOSE, URINE NEGATIVE (NEGATIVE); KETONES,URINE NEGATIVE (NEGATIVE); LEUKOCYTE ESTERASE,URINE SMALL (NEGATIVE); NITRITE,URINE NEGATIVE (NEGATIVE); PROTEIN,URINE NEGATIVE (NEGATIVE); UROBILINOGEN,URINE NEGATIVE mg/dL (<2.0)
[2020-08-10] MEDS ORDERED: NORMAL SALINE 1000 ML 1,000 ML IV ONE (09:59)
[2020-08-10] MEDS ORDERED: HYDROMORPHONE HCL INJ/PF 2 MG/ML AMPULE IV ONE ×2 (10:00→13:44)
[2020-08-10] MEDS ORDERED: ONDANSETRON HCL INJ/PF 4 MG/2 ML SDV IV ONE (10:00)
[2020-08-10 10:07] LABS: ALBUMIN 3.9 g/dL (3.5-5.0); ALKALINE PHOSPHATASE 57 U/L (38-126); ANION GAP 7 (5-19); ASPARTATE AMINO TRANSFERASE 20 U/L (14-36); BILIRUBIN,DIRECT 0.1 mg/dL (0.0-0.4); BILIRUBIN,TOTAL 0.4 mg/dL (0.2-1.3); BLOOD UREA NITROGEN 9 mg/dL (7-20); CALCIUM 8.8 mg/dL (8.4-10.2); CARBON DIOXIDE 28 mmol/L (22-30); CHLORIDE 106 mmol/L (98-107); GLUCOSE 94 mg/dL (75-110); POTASSIUM 4.3 mmol/L (3.6-5.0); TOTAL PROTEIN 6.9 g/dL (6.3-8.2)
--- NOTE | 2020-08-10 12:45 | RADIOLOGY REPORT (SQ) ---
EXAM DESCRIPTION: U/S ABDOMEN LTD W/DOPPLER IMAGES COMPLETED DATE/TIME: 08/10/2020 12:33 pm REASON FOR STUDY: ruq abd pain COMPARISON: 03/29/2018 TECHNIQUE: Dynamic and static grayscale images acquired of the abdomen and recorded on PACS. Antonioo milad selected color Doppler and spectral images recorded. LIMITATIONS: None. FINDINGS: PANCREAS: Visualized portions of the pancreas are normal. The tail is obscured by overlyi ng bowel gas. LIVER: Increased echogenicity consistent with steatosis. The liver measures 20 cm in cranial caudal dimensions. LIVER VASCULATURE: Normal directional flow of the main portal vein and hepatic veins. GALLBLADDER: No wall thickening or pericholecystic edema. Gallstones are again noted. ULTRASOUND-DETECTED EDMONDS'S SIGN: Negative. INTRAHEPATIC DUCTS AND COMMON DUCT: CBD and intrahepatic ducts normal caliber. No filling defects. AORTA: No aneurysm. RIGHT KIDNEY: Normal size. Normal echogenicity. No solid or suspicious masses. No hydronephrosis. No calcifications. PERITONEAL AND RIGHT PLEURAL SPACE: No ascites or effusions. OTHER: No other significant findings. IMPRESSION: 1. Cholelithiasis. No sonographic evidence of acute cholecystitis. 2. Hepatic steatosis. Mild hepatomegaly. TECHNICAL DOCUMENTATION: JOB ID: [id number] 2010 [employer]- All Rights Reserved Reading location - IP/workstation name: [email or web address]
--- NOTE | 2020-08-10 14:26 | ER Document Report ---
Entered by CHUCKY MEDINA SCRIBE 08/10/20 0948 Acting as scribe for:JOHNIE MONROE MD ED GI/ - General Chief Complaint: Abdominal Pain Stated Complaint: UPPER ABDOMINAL PAIN Mode of Arrival: Ambulatory Information source: Patient Notes: This 29 year old female patient presents to the ED today for evaluation after waking up this morning with "excruciating" RUQ abdominal pain. Patient reports that she was told about x2 years ago that there was sludge and "ioana" in her gallbladder and that she needed surgical follow-up which she has not done yet. She states that she also noticed yellow stools yesterday. Denies or back pain. Last meal was around 1900 yesterday evening. TRAVEL OUTSIDE OF THE [place] IN LAST 30 DAYS: No - Related Data Allergies/Adverse Reactions: erythromycin base Allergy (Verified 08/10/20 08:36) fluticasone Allergy (Verified 08/10/20 08:36) mometasone furoate Allergy (Verified 08/10/20 08:36) pollen extracts Allergy (Verified 08/10/20 08:36) ragweed pollen Allergy (Verified 08/10/20 08:36) Home Medications: flexeril, albuterol, quvair Past Medical History - General Information source: Patient - Social History Smoking Status: Current Every Day Smoker Chew tobacco use (# tins/day): No Smoking Education Provided: No Frequency of alcohol use: Occasional Drug Abuse: None Lives with: Spouse/Significant other Family History: Reviewed & Not Pertinent Patient has suicidal ideation: No Patient has homicidal ideation: No Pulmonary Medical History: Reports: Hx Asthma Past Surgical History: Reports: Hx Section - x1, Hx Orthopedic Surgery - R ACL reconstruction - Immunizations Immunizations up to date: Yes Review of Systems - Review of Systems Constitutional: No symptoms reported EENT: No symptoms reported Cardiovascular: No symptoms reported Respiratory: No symptoms reported Gastrointestinal: See HPI, Abdominal pain, Other - Yellow stools Genitourinary: No symptoms reported Female Genitourinary: See HPI. denies: Musculoskeletal: See HPI. denies: Back pain Skin: No symptoms reported Hematologic/Lymphatic: No symptoms reported Neurological/Psychological: No symptoms reported -: Yes All other systems reviewed and negative Physical Exam - Vital signs Vitals: Temp Pulse Resp BP Pulse Ox 97.9 F 96 18 145/88 H 98 10/30/20 08:26 08/10/20 08:26 08/10/20 08:26 08/10/20 08:26 08/10/20 08:26 - General General appearance: Alert In distress: None - HEENT Head: Normocephalic, Atraumatic Eyes: Normal Pupils: PERRL - Respiratory Respiratory status: No respiratory distress Chest status: Nontender Breath sounds: Normal Chest palpation: Normal - Cardiovascular Rhythm: Regular Heart sounds: Normal auscultation Murmur: No Friction rub: No Gallop: None auscultated - Abdominal Inspection: Obese Distension: No distension Bowel sounds: Normal Tenderness: Tender - RUQ tenderness to palpation, Guarding Organomegaly: No organomegaly - Back Back: Normal, Nontender - Extremities General upper extremity: Normal inspection General lower extremity: Normal inspection. No: Edema - Neurological Neuro grossly intact: Yes Orientation: AAOx4 Mya Coma Scale Eye Opening: Spontaneous [place] Coma Scale Verbal: Oriented [place] Coma Scale Motor: Obeys Commands Mya Coma Scale Total: 15 - Psychological Associated symptoms: Normal affect, Normal mood - Skin Skin Temperature: Warm Skin Moisture: Dry Skin Color: Normal Course - Re-evaluation Re-evalutation: 08/10/20 14:17 Patient reports that her pain has improved. There is no nausea and vomiting. - Vital Signs Vital signs: Temp Pulse Resp BP Pulse Ox 97.9 F 96 18 145/88 H 98 08/10/20 08:26 08/10/20 08:26 08/10/20 08:26 08/10/20 08:26 08/10/20 08:26 08/10/20 14:18 Vital signs are stable no acute process. - Laboratory Result Diagrams: 08/10/20 09:38 08/10/20 09:38 Laboratory results interpreted by me: 08/10/20 08/10/20 09:38 09:38 MCV 78 L MCH 26.3 L RDW 15.7 H Ur Leukocyte Esterase SMALL H Laboratory shows no significant laboratory abnormalities patient has a small le ukocyte esterase otherwise negative MCV shows a low level anemia at 78. 08/10/20 14:20 Patient has a normal lipase level associated with normal liver function tests. - Diagnostic Test Radiology reviewed: Image reviewed, Reports reviewed Radiology results interpreted by me: 08/10/20 13:53 Abdomen Ultrasound 08/10/20 09:58 IMPRESSION: 1. Cholelithiasis. No sonographic evidence of acute cholecystitis. 2. Hepatic steatosis. Mild hepatomegaly. 08/10/20 14:18 Abdominal ultrasound shows cholelithiasis with no other evidence for acute cholecystitis. Patient has mild hepatomegaly and also noted to have hepatic steatosis. LFTs are also within the normal range at this time. Discharge - Discharge Clinical Impression: Cholelithiasis, Biliary colic Condition: Stable Disposition: HOME, SELF-CARE Instructions: Gallbladder Disease ([facility]), Abdominal Pain ([facility]), Low-Fat Diet ([facility]), Oral Narcotic Medication ([facility]) Prescriptions: Hydrocodone/Acetaminophen [[place] 5-325 mg Tablet] 1 tab PO QID PRN #8 tablet PRN Reason: severe pain Ondansetron [Zofran Odt 4 mg Tablet] 1 - 2 tab PO Q4H PRN #15 tab.rapdis PRN Reason: For Nausea/Vomiting I personally performed the services described in the documentation, reviewed and edited the documentation which was dictated to the scribe in my presence, and it accurately records my words and actions.
[2020-08-10 15:07] VITALS: BP 142/84
== END 2020-08-10 15:05 | disposition home or self-care (01) ==
LOC: ER 08:23
DX: K80.20 Calculus of gallbladder without cholecystitis without obstruction (principal); K80.50 Calculus of bile duct without cholangitis or cholecystitis without obstruction; R10.10 Upper abdominal pain, unspecified; F17.200 Nicotine dependence, unspecified, uncomplicated; Z88.3 Allergy status to other anti-infective agents
CPT/HCPCS: 99285; 96361; 96374; 96375; 36415; 83690; 85025; 81025; 80053; 81001; 76705; 93976; J1170; J2405; J7030

== ENCOUNTER 2020-09-18 17:20 | Emergency (ER) | payer MEDICAID ==
[2020-09-18 17:28] VITALS: BP 143/73
--- NOTE | 2020-09-18 18:18 | ER Document Report ---
ED ENT - General Stated Complaint: LEFT EAR PAIN Time Seen by Provider: 09/18/20 18:11 Primary Care Provider: JUSTYN SANCHEZ MD [Primary Care Provider] - Follow up as needed Notes: CHIEF COMPLAINT: Left ear pain for 2 days HPI: 29-year-old female presenting with left ear pain for 2 days. Feels like the pain radiates down into the neck. Has not had cough or cold symptoms recently. No fever. ROS: See HPI - all other systems were reviewed and are otherwise negative Constitutional: no fever Eyes: no drainage, no blurred vision ENT: no runny nose, no sore throat, positive ear pain Cardiovascular: no chest pain Resp: no SOB, no cough GI: no vomiting, no diarrhea, no abdominal pain : no dysuria Integumentary: no rash Allergy: no hives Musculoskeletal: no extremity pain or swelling Neurological: no numbness/tingling, no weakness MEDICATIONS: I agree with the patient medications as charted by the RN. ALLERGIES: I agree with the allergies as charted by the RN. PAST MEDICAL HISTORY/PAST SURGICAL HISTORY: Reviewed and agree as charted by RN. SOCIAL HISTORY: Reviewed and agree as charted by RN. FAMILY HISTORY: No significant familial comorbid conditions directly related to patient complaint EXAM: Reviewed vital signs as charted by RN. CONSTITUTIONAL: Alert and oriented and responds appropriately to questions. Well-appearing; well-nourished HEAD: Normocephalic; atraumatic EYES: PERRL; Conjunctivae clear, sclerae non-icteric ENT: normal nose; no rhinorrhea; moist mucous membranes; pharynx without lesions noted, no uvula edema or deviation, no tonsillar hypertrophy, phonation normal. Bilateral tympanic membranes with slightly cloudy fluid behind them. The right auditory canal is clear the left auditory canal is erythematous and irritated with slight edema noted NECK: Supple without meningismus; non-tender; no cervical lymphadenopathy, no masses CARD: symmetric distal pulses RESP: Normal chest excursion without splinting or tachypnea ABD/GI: non-distended BACK: The back appears normal EXT: Normal ROM in all joints; no cyanosis, no effusions, no edema SKIN: Normal color for age and race; warm; dry; good turgor NEURO: Moves all extremities equally; Motor and sensory function intact PSYCH: The patient's mood and manner are appropriate. Grooming and personal hygiene are appropriate. MDM: 29-year-old female with left otitis externa we will treat with Cortisporin drops pain medication follow-up ENT TRAVEL OUTSIDE OF THE [place] IN LAST 30 DAYS: No - Related Data Allergies/Adverse Reactions: erythromycin base Allergy (Verified 09/18/20 18:10) fluticasone Allergy (Verified 09/18/20 18:10) mometasone furoate Allergy (Verified 09/18/20 18:10) pollen extracts Allergy (Verified 09/18/20 18:10) ragweed pollen Allergy (Verified 09/18/20 18:10) Past Medical History - Social History Smoking Status: Unknown if Ever Smoked Family History: Reviewed & Not Pertinent Pulmonary Medical History: Reports: Hx Asthma Renal/ Medical History: Denies: Hx Peritoneal Dialysis Past Surgical History: Reports: Hx Section - x1, Hx Orthopedic Surgery - R ACL reconstruction - Immunizations Immunizations up to date: Yes Physical Exam - Vital signs Vitals: Temp Pulse Resp BP Pulse Ox 98.1 F 85 20 143/73 H 100 09/18/20 17:28 09/18/20 17:28 09/18/20 17:28 09/18/20 17:28 09/18/20 17:28 Course - Vital Signs Vital signs: Temp Pulse Resp BP Pulse Ox 98.1 F 85 20 143/73 H 100 09/18/20 17:28 09/18/20 17:28 09/18/20 17:28 09/18/20 17:28 09/18/20 17:28 - Laboratory Results Critical Laboratory Results Reviewed: No Critical Results - Radiology Results Critical Radiology Results Reviewed: No Critical Results Discharge - Discharge Clinical Impression: Otitis externa Qualifiers: Otitis externa type: other infective Chronicity: acute Laterality: left Qualified Code(s): H60.392 - Other infective otitis externa, left ear Condition: Stable Disposition: HOME, SELF-CARE Instructions: Otitis Externa ([facility]) Additional Instructions: Use the eardrops as prescribed. Follow-up with both your primary care provider and ENT for further evaluation and treatment call for appointment. Do not drive if taking narcotics for pain. If you develop fever greater than 101 or have swelling or redness around the ear return for reevaluation Prescriptions: Neomy Sulf/Polymyx B Sulf/Hc [Cortisporin Otic Susp] 3 drop QID 7 Days #1 bottle Hydrocodone/Acetaminophen [[place] 5-325 mg Tablet] 1 tab PO Q4 PRN #15 tablet PRN Reason: Referrals: JUSTYN SANCHEZ MD [Primary Care Provider] - Follow up as needed JUSTYN RAMÍREZ DO [ASSOCIATE] - Follow up as needed
== END 2020-09-18 18:16 | disposition home or self-care (01) ==
LOC: ER 17:20
DX: H60.392 Other infective otitis externa, left ear (principal); Z88.3 Allergy status to other anti-infective agents
CPT/HCPCS: 99283